=== PATIENT | female | born 2000 | race Caucasian/White ===

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

== ENCOUNTER 2018-01-14 16:01 | Outpatient (CLI) | payer BC, MEDICAID | END 2018-01-14 23:59 | LOC: LAB.R 16:01 | PROVIDERS: ATTEND Registered Nurse | DX: Z01.419 Encounter for gynecological examination (general) (routine) without abnormal findings (principal) | CPT/HCPCS: 87491; 87591 ==

== ENCOUNTER 2019-01-11 11:36 | Emergency (ER) | payer BC, MEDICAID ==
[2019-01-11 11:44] VITALS: BP 100/60
[2019-01-11 12:04] LABS: GLUCOSE, URINE (UA) NEGATIVE (NEGATIVE); KETONES,URINE (UA) 15 mg/dL (NEGATIVE); PH,URINE 6.5 PH (5.0-7.5)
[2019-01-11 12:05] LABS: CLARITY,URINE CLOUDY (CLEAR)
[2019-01-11 12:10] LABS: BILIRUBIN,URINE COLOR INTERFERENCE (NEGATIVE); HCG UR QUAL NEGATIVE
[2019-01-11 12:19] LABS: BACTERIA,URINE Few /HPF (None Seen); MUCUS,URINE Few Strands; SQUAMOUS EPITHELIAL CELL,UR FEW Squamous (<= Few)
--- NOTE | 2019-01-11 12:35 | ED Physician Documentation ---
PD HPI BACK PAIN - Stated complaint Stated Complaint: BACK PX - Chief complaint Chief Complaint: Back Pain - History obtained from History obtained from: Patient - History of Present Illness Timing - onset: How many days ago (3-4) Timing - duration: Days Timing - details: Gradual onset Pain level max: 8 Pain level now: 8 Location: Lower, Right Quality: Pain, Spasm Associated symptoms: No: Fever, Weakness, Numbness, Incontinent of urine, Unable to urinate, Hematuria, Incontinent of stool Improves with: Rest Worsened by: Movement Contributing factors: Other (states woke up with back pain) Recently seen: Not recently seen - Additional information Additional information: Patient with right low back pain that occasionally radiates down the right leg. Worse with movement and better with rest. She states she woke up from sleep like this. Review of Systems Constitutional: denies: Fever, Chills Ears: denies: Ear pain Nose: denies: Rhinorrhea / runny nose, Congestion Cardiac: denies: Chest pain / pressure Respiratory: denies: Cough GI: denies: Nausea, Vomiting, Diarrhea : reports: Dysuria Skin: denies: Rash Musculoskeletal: denies: Neck pain Neurologic: denies: Focal weakness, Numbness, Headache PD PAST MEDICAL HISTORY - Past Medical History Past Medical History: No - Past Surgical History Past Surgical History: No - Present Medications Home Medications: Ambulatory Orders Medication Instructions Recorded Confirmed Cyclobenzaprine [Flexeril] 10 mg PO TID PRN #20 tablet 01/11/19 Meloxicam [Mobic] 15 mg PO DAILY PRN #20 tablet 01/11/19 Sulfamethox/Trimeth 800/160 1 each PO BID #20 tablet 01/11/19 [Bactrim Ds 800/160] - Allergies Allergies/Adverse Reactions: Allergies Allergy/AdvReac Type Severity Reaction Status Date / Time No Known Drug Allergies Allergy Verified 01/11/19 11:44 - Social History Does the pt smoke?: No Smoking Status: Never smoker Does the pt drink ETOH?: No Does the pt have substance abuse?: No PD ED PE NORMAL - Vitals Vital signs reviewed: Yes - General General: Alert and oriented X 3, No acute distress - HEENT HEENT: PERRL - Neck Neck: Supple, no meningeal sign - Cardiac Cardiac: RRR - Respiratory Respiratory: No respiratory distress, Clear bilaterally - Abdomen Abdomen: Soft, Non tender, Non distended - Back Back: Other (No midline tenderness to palpation. Paraspinal spasm, right greater than left.) - Derm Derm: Warm and dry, No rash - Extremities Extremities: No edema, Other (Normal bilateral lower extremity patellar and ankle jerk reflexes. Normal great toe extension bilaterally. no saddle anesthesia) - Neuro Neuro: Alert and oriented X 3, No motor deficit, No sensory deficit - Psych Psych: Normal mood, Normal affect Results - Vitals Vitals: Vital Signs - 24 hr 01/11/19 11:42 Temperature 36.2 C L Heart Rate 119 H Respiratory 16 Rate Blood Pressure 100/60 O2 Saturation 98 Oxygen O2 Source Room air - Labs Labs: Laboratory Tests 01/11/19 11:49 Urine Color LT RED Urine Clarity CLOUDY Urine pH 6.5 Ur Specific [place] 1.020 Urine Protein Urine Glucose (UA) NEGATIVE Urine Ketones 15 H Urine Occult Blood Urine Nitrite Urine Bilirubin COLOR INTERFERENCE Urine Urobilinogen Ur Leukocyte Esterase Urine RBC 6-10 H Urine WBC >25 H Ur Squamous Epith Cells FEW Squamous Urine Bacteria Few Urine Mucus Few Strands Ur Microscopic Review INDICATED Urine Culture Comments INDICATED Urine HCG, Qual NEGATIVE PD MEDICAL DECISION MAKING - ED course Complexity details: re-evaluated patient, considered differential (No cauda equina, no spinal epidural abscess, no fracture, no aortic dissection or evidence of aneursym rupture), d/w patient, d/w family ED course: 18-year-old female presents to the emergency department with low back pain. Appears to be musculoskeletal. Also has a UTI, possible Pyelo? Will treat with Bactrim. She is well-appearing, nontoxic. Afebrile. No evidence of cauda equina. No evidence of fracture. No evidence of epidural abscess. Patient counseled regarding signs and symptoms for which I believe and urgent re- evaluation would be necessary. Patient with good understanding of and agreement to plan and is comfortable going home at this time This document was made in part using voice recognition software. While efforts are made to proofread this document, sound alike and grammatical errors may occur. Departure - Departure Disposition: 01 Home, Self Care Clinical Impression: Back spasm UTI (urinary tract infection) Qualifiers: Urinary tract infection type: acute cystitis Hematuria presence: without hematuria Qualified Code(s): N30.00 - Acute cystitis without hematuria Condition: Good Instructions: ED UTI Cystitis Female, ED Spasm Back No Trauma Follow-Up: Leonor Galicia, MANAGER METAL [Primary Care Provider] - Within 1 week Prescriptions: Cyclobenzaprine [Flexeril] 10 mg PO TID PRN #20 tablet PRN Reason: Spasms Meloxicam [Mobic] 15 mg PO DAILY PRN #20 tablet PRN Reason: pain Sulfamethox/Trimeth 800/160 [Bactrim Ds 800/160] 1 each PO BID #20 tablet Comments: Take all antibiotics until gone. Return if you worsen. Do not drive or operate heavy machinery while taking the Flexeril. This should improve over the next 2 to 3 days.
== END 2019-01-11 12:49 | disposition home or self-care (01) ==
LOC: ED 11:36
DX: M62.830 Muscle spasm of back (principal); N30.00 Acute cystitis without hematuria
CPT/HCPCS: 81001; 81003; 81025; 87077; 87086; 87181; 99283

== ENCOUNTER 2020-04-20 00:53 | Emergency (ER) | payer BC, MEDICAID ==
--- NOTE | 2020-04-20 01:50 | ED Physician Documentation ---
PD HPI FEMALE - Stated complaint Stated Complaint: F - Chief complaint Chief Complaint: Abd Pain - History obtained from History obtained from: Patient - History of Present Illness Timing - onset: How many weeks ago (8) Timing - details: Waxing and waning Pain level max: 0 Associated symptoms: Pelvic pain (intermittent pelvic midline cramping), Vaginal bleeding. No: Fever, Abdominal pain, Back pain OB-AMPOULE FILLER History: Termination(s) Recently seen: Clinic - Additional information Additional information: patient says she was approximately 6 weeks 8 weeks ago when she took prescribed medication meant to induce of her . She says this was through a [facility] and that blood tests were done to both confirm as well as a few weeks after taking the medication; patient says the follow up blood tests confirmed the medication had the desired effect. Patient says no ultrasound was performed. She c/o ongoing bleeding in the 8 weeks since she took the medication, and the bleeding worsened over the past 1-2 weeks becoming associated with clots and intermittent midline pelvic cramping Review of Systems Constitutional: denies: Fever, Chills, Sweats GI: denies: Abdominal Pain, Nausea : reports: Vaginal bleeding. denies: Dysuria, Frequency Musculoskeletal: denies: Back pain PD PAST MEDICAL HISTORY - Past Medical History Past Medical History: No - Past Surgical History Past Surgical History: No - Present Medications Home Medications: Ambulatory Orders Medication Instructions Recorded Confirmed No Known Home Medications 04/20/20 04/20/20 - Allergies Allergies/Adverse Reactions: Allergies Allergy/AdvReac Type Severity Reaction Status Date / Time No Known Drug Allergies Allergy Verified 04/20/20 01:04 - Social History Does the pt smoke?: No Smoking Status: Never smoker Does the pt drink ETOH?: No Does the pt have substance abuse?: No PD ED PE NORMAL - Vitals Vital signs reviewed: Yes - General General: Alert and oriented X 3, No acute distress, Well developed/nourished - Abdomen Abdomen: Soft, Non tender, Non distended - Back Back: No CVA TTP Results - Vitals Vitals: Vital Signs - 24 hr 04/20/20 04/20/20 00:59 04:33 Temperature 36.5 C Heart Rate 86 81 Respiratory 18 16 Rate Blood Pressure 139/95 H 133/71 H O2 Saturation 100 99 Oxygen O2 Source Room air - Labs Labs: Laboratory Tests 04/20/20 04/20/20 04/20/20 02:12 02:15 03:15 WBC 4.3 L RBC 4.13 L Hgb 12.9 Hct 38.4 MCV 93.0 MCH 31.2 H MCHC 33.6 RDW 11.6 L Plt Count 281 MPV 10.3 Neut # (Auto) 2.1 Lymph # (Auto) 1.8 [place] # (Auto) 0.3 Eos # (Auto) 0.1 Baso # (Auto) 0.0 Absolute Nucleated RBC 0.00 Nucleated RBC % 0.0 Sodium 138 Potassium 3.7 Chloride 105 Carbon Dioxide 23 Anion Gap 10.0 BUN 9 Creatinine 0.6 Estimated GFR (MDRD) 125 Glucose 96 Calcium 9.5 Total Bilirubin 1.5 H AST 21 ALT 24 Alkaline Phosphatase 11 L Total Protein 8.0 Albumin 4.3 Globulin 3.7 Albumin/Globulin Ratio 1.2 Lipase 25 HCG, Quant Urine Color DARK YELLOW Urine Clarity CLEAR Urine pH 6.0 Ur Specific [place] >=1.030 H Urine Protein 30 H Urine Glucose (UA) NEGATIVE Urine Ketones NEGATIVE Urine Occult Blood LARGE H Urine Nitrite NEGATIVE Urine Bilirubin NEGATIVE Urine Urobilinogen 0.2 (NORMAL) Ur Leukocyte Esterase NEGATIVE Urine RBC TNTC H Urine WBC 0-3 Ur Squamous Epith Cells RARE Squamous Urine Bacteria Rare Urine Mucus Moderate Strands Ur Microscopic Review INDICATED Urine Culture Comments NOT INDICATED 04/20/20 03:15 WBC RBC Hgb Hct MCV MCH MCHC RDW Plt Count MPV Neut # (Auto) Lymph # (Auto) [place] # (Auto) Eos # (Auto) Baso # (Auto) Absolute Nucleated RBC Nucleated RBC % Sodium Potassium Chloride Carbon Dioxide Anion Gap BUN Creatinine Estimated GFR (MDRD) Glucose Calcium Total Bilirubin AST ALT Alkaline Phosphatase Total Protein Albumin Globulin Albumin/Globulin Ratio Lipase HCG, Quant 41.98 Urine Color Urine Clarity Urine pH Ur Specific [place] Urine Protein Urine Glucose (UA) Urine Ketones Urine Occult Blood Urine Nitrite Urine Bilirubin Urine Urobilinogen Ur Leukocyte Esterase Urine RBC Urine WBC Ur Squamous Epith Cells Urine Bacteria Urine Mucus Ur Microscopic Review Urine Culture Comments - Rads (name of study) pelvic US Radiology: Prelim report reviewed, See rad report PD MEDICAL DECISION MAKING - ED course Complexity details: reviewed results, re-evaluated patient, considered differential, d/w patient ED course: reassuring blood test results (normal h/h). US c/w retained POC. D/W Dr. Ulloa, recommends 800 micrograms misoprostol (can be given to patient to take at home) and f/u with Dr. Ulloa 8:45 AM this coming Wednesday in the office for repeat US. I discussed this with patient and she is comfortable with this plan Departure - Departure Disposition: Home, Self Care Clinical Impression: Retained products of conception Condition: Good Follow-Up: Awilda Ulloa MD [Provider Admit Priv/Credential] - Comments: The ultrasound performed tonight shows retained products of conception; this means that there is still tissue in the uterus from the that has not yet been expelled by the previous medication. Another dose of medication has been given to you tonight; take this when you get home from the emergency department (800 micrograms of misoprostol, to be taken all at once). This will likely cause increased bleeding and pelvic cramping. If you have more than 2 soaked superpads of bleeding per hour, you need to return to the emergency department. Follow up with Dr. Ulloa at 8:45 AM this coming Wednesday for repeat testing (ultrasound) to see if the tissue has been expelled. Discharge Date/Time: 04/20/20 04:35
[2020-04-20 02:18] LABS: BASOPHILS % (AUTO) 0.5 %; EOSINOPHILS # (AUTO) 0.1 10^3/uL (0.0-0.7); EOSINOPHILS % (AUTO) 2.3 %; HGB - HEMOGLOBIN 12.9 g/dL (12.0-16.0); LYMPHOCYTES # (AUTO) 1.8 10^3/uL (1.5-3.5); LYMPHOCYTES % (AUTO) 41.4 %; MEAN CORPUSCULAR HEMOGLOBIN 31.2 pg (27.0-31.0); MEAN CORPUSCULAR HGB CONC 33.6 g/dL (32.0-36.0); MEAN PLATELET VOLUME 10.3 fL (7.9-10.8); MONOCYTES # (AUTO) 0.3 10^3/uL (0.0-1.0); MONOCYTES % (AUTO) 7.9 %; NEUTROPHILS # (AUTO) 2.1 10^3/uL (1.5-6.6); NEUTROPHILS % (AUTO) 47.9 %; PLT - PLATELET COUNT 281 10^3/uL (130-450); RED BLOOD COUNT 4.13 10^6/uL (4.20-5.40); RED CELL DISTRIBUTION WIDTH 11.6 % (12.0-15.0); WHITE BLOOD COUNT 4.3 x10^3/uL (4.8-10.8)
[2020-04-20 02:23] LABS: GLUCOSE, URINE (UA) NEGATIVE (NEGATIVE); KETONES,URINE (UA) NEGATIVE (NEGATIVE); LEUKOCYTE ESTERASE, URINE NEGATIVE (NEGATIVE); NITRITE,URINE NEGATIVE (NEGATIVE); OCCULT BLOOD,URINE LARGE (NEGATIVE); PROTEIN,URINE 30 mg/dL (NEGATIVE); UROBILINOGEN,URINE 0.2 (NORMAL) E.U./dL (NORMAL)
[2020-04-20 02:26] LABS: BILIRUBIN,URINE NEGATIVE (NEGATIVE); CLARITY,URINE CLEAR (CLEAR); ICTOTEST,URINE NEGATIVE
[2020-04-20 02:29] LABS: BACTERIA,URINE Rare /HPF (None Seen); MUCUS,URINE Moderate Strands; RBC,URINE TNTC /HPF (0-5); SQUAMOUS EPITHELIAL CELL,UR RARE Squamous (<= Few)
[2020-04-20 03:34] LABS: ALBUMIN 4.3 g/dL (3.2-5.5); ALBUMIN/GLOBULIN RATIO 1.2 (1.0-2.2); BILIRUBIN,TOTAL 1.5 mg/dL (0.2-1.0); CALCIUM 9.5 mg/dL (8.5-10.3); CREATININE 0.6 mg/dL (0.4-1.0)
[2020-04-20] MEDS ORDERED: miSOPROStoL 200 MCG TABLET PO STA (04:11)
[2020-04-20 04:34] VITALS: BP 133/71
--- NOTE | 2020-04-20 12:56 | Ultrasound Report ---
PROCEDURE: Transvaginal INDICATIONS: assess possible retained POC TECHNIQUE: Real-time transabdominal scanning was performed of the pelvic organs, with image documentation. COMPARISON: None. FINDINGS: Uterus: Uterus is normal in size at A 0.4 x 4.8 x 3.8 cm. Endometrium is heterogeneous -14.5 mm. Add itionally, in the fundal aspect of the endometrium there is a prevascular heterogeneous complex measu ring approximately 1.5 x 1.4 x 1.2 cm highly suggestive of retained products of conception. Ovaries: Right ovary measures 2.4 x 1.6 x 1.5 cm. Left ovary measures 2.7 x 1.6 x 1.5 cm. Normal Dop pler appearance of the ovaries. Other: No free pelvic fluid. Limited scanning through the kidneys shows no hydronephrosis. IMPRESSION: Findings consistent with retained products of conception at the fundal aspect and endome trium. No significant discrepancy between the preliminary and final reports. Reviewed by: Renaldo Shepherd on 04/20/2020 11:55 AM AMPARO Approved by: Renaldo Shepherd on 04/20/2020 11:55 AM AMPARO Station ID: [id number]
--- NOTE | 2020-04-20 12:58 | Ultrasound Report ---
PROCEDURE: Pelvic Complete INDICATIONS: assess for possible retained POC TECHNIQUE: Real-time transabdominal scanning was performed of the pelvic organs, with image documentation. COMPARISON: None. FINDINGS: Uterus: Uterus is normal in size at A 0.4 x 4.8 x 3.8 cm. Endometrium is heterogeneous -14.5 mm. Add itionally, in the fundal aspect of the endometrium there is a prevascular heterogeneous complex measu ring approximately 1.5 x 1.4 x 1.2 cm highly suggestive of retained products of conception. Ovaries: Right ovary measures 2.4 x 1.6 x 1.5 cm. Left ovary measures 2.7 x 1.6 x 1.5 cm. Normal Dop pler appearance of the ovaries. Other: No free pelvic fluid. Limited scanning through the kidneys shows no hydronephrosis. IMPRESSION: Findings consistent with retained products of conception at the fundal aspect and endome trium. No significant discrepancy between the preliminary and final reports. Reviewed by: Renaldo Shepherd on 04/20/2020 11:56 AM AMPARO Approved by: Renaldo Shepherd on 04/20/2020 11:56 AM AMPARO Station ID: [id number]
== END 2020-04-20 04:35 | disposition home or self-care (01) ==
LOC: ED 00:53
DX: O03.1 Delayed or excessive hemorrhage following incomplete spontaneous abortion (principal)
CPT/HCPCS: 36415; 76830; 76856; 80053; 81001; 83690; 84702; 85025; 99283; 99284; A9270; 81003; 87086

== ENCOUNTER 2023-08-04 08:00 | Outpatient (CLI) | payer BC | END 2023-08-04 23:59 | disposition home or self-care (01) | LOC: LAB.WC 08:00 | PROVIDERS: ATTEND Obstetrics & Gynecology | DX: Z36.85 Encounter for antenatal screening for Streptococcus B (principal) | CPT/HCPCS: 87797 ==

== ENCOUNTER 2023-08-04 11:36 | Outpatient (CLI) | payer BC ==
[2023-08-04 11:51] VITALS: BP 113/68
--- NOTE | 2023-08-04 21:09 | PROCEDURE REPORT ---
- HPI Diagnosis/Indication for NST: Other (velamentous cord insertion) Current EDU 09/01/23 Gestation 36 Weeks and 0 Days 8 Para 2 Vital Signs Temperature 97.9 F 08/04/23 11:44 Heart Rate 70 08/04/23 11:44 Respiratory Rate 16 08/04/23 11:44 Blood Pressure 113/68 08/04/23 11:44 Temperature 97.9 F 08/04/23 11:44 Heart Rate 70 08/04/23 11:44 Respiratory Rate 16 08/04/23 11:44 Blood Pressure 113/68 08/04/23 11:44 O2 Saturation If not protocol: Oxygen Flow, liters/minute - NST Procedure NST Procedure Start Date 08/04/23 Start Time 11:41 Stop Time 12:43 Vibroacoustic Stimulation Used No Patient States Movement Yes NST reviewed in real time. no decels. + acels. moderate variability. - Results and Plan Findings/Impression: reactive nst Plan: as scheduled.
== END 2023-08-04 12:56 | disposition home or self-care (01) ==
LOC: WFO 11:36 → FBP 11:37 → WFO 12:56
PROVIDERS: ATTEND Obstetrics & Gynecology
DX: O43.123 Velamentous insertion of umbilical cord, third trimester (principal); Z87.59 Personal history of other complications of pregnancy, childbirth and the puerperium; Z3A.36 36 weeks gestation of pregnancy; Z36.85 Encounter for antenatal screening for Streptococcus B
CPT/HCPCS: 59025; 87797

== ENCOUNTER 2023-08-12 06:35 | Inpatient (IN) | payer BC, MEDICAID ==
[2023-08-12] MEDS ORDERED: OXYTOCIN/SODIUM CHLORIDE 500 ML IV PRN ×2 (07:32→11:02)
[2023-08-12] MEDS ORDERED: NIFEdipine 10 MG CAPSULE PO PRN ×2 (07:32→11:02)
[2023-08-12] MEDS ORDERED: lidocaine 1% 20 ML MDV ID PRN ×2 (07:32→11:02)
[2023-08-12] MEDS ORDERED: miSOPROStoL 200 MCG TABLET BC PRN ×2 (07:32→11:02)
[2023-08-12] MEDS ORDERED: TERBUTALINE 1 MG/ML VIAL SUBQ PRN ×2 (07:32→11:02)
[2023-08-12] MEDS ORDERED: OXYTOCIN 10 UNIT/ML VIAL IM PRN ×2 (07:32→11:02)
[2023-08-12] MEDS ORDERED: hydrALAZINE INJ 20 MG/ML VIAL IVP PRN ×4 (07:32→11:02)
[2023-08-12] MEDS ORDERED: miSOPROStoL 200 MCG TABLET PR PRN ×2 (07:32→11:02)
[2023-08-12] MEDS ORDERED: TRANEXAMIC ACID IN NACL 1,000 MG/100 ML BAG IV PRN ×2 (07:32→11:02)
[2023-08-12] MEDS ORDERED: CARBOPROST TROMETHAMINE 250 MCG/ML AMP IM PRN ×2 (07:32→11:02)
[2023-08-12] MEDS ORDERED: LACTATED RINGERS 1,000 ML IV PRN ×3 (07:32→16:50)
[2023-08-12] MEDS ORDERED: AMPICILLIN 2 GM in SODIUM CHLORIDE 0.9% MINIBAG 100 ML IV ONE (07:32)
[2023-08-12] MEDS ORDERED: METHYLERGONOVINE 0.2 MG/ML VIAL IM PRN ×2 (07:32→11:02)
[2023-08-12] MEDS ORDERED: fentaNYL 100 MCG/2 ML VIAL IVP PRN ×2 (07:32→11:02)
[2023-08-12] MEDS ORDERED: LABETALOL 20 MG/4 ML SYRINGE IVP PRN ×6 (07:32→11:02)
[2023-08-12] MEDS ORDERED: SODIUM CHLORIDE FLUSH 0.9% 10 ML SYRINGE IVP PRN ×2 (07:32→11:02)
[2023-08-12] MEDS ORDERED: SODIUM CHLORIDE FLUSH 0.9% 10 ML SYRINGE IVP SCH (08:00)
[2023-08-12] MEDS: LACTATED RINGERS 1,000 ML IV SCH (08:16)
[2023-08-12 08:31] LABS: BASOPHILS % (AUTO) 0.3 %; EOSINOPHILS # (AUTO) 0.1 10^3/uL (0.0-0.7); EOSINOPHILS % (AUTO) 0.8 %; HCT - HEMATOCRIT 36.8 % (37.0-47.0); HGB - HEMOGLOBIN 12.1 g/dL (12.0-16.0); LYMPHOCYTES # (AUTO) 2.1 10^3/uL (1.5-3.5); LYMPHOCYTES % (AUTO) 32.1 %; MEAN CORPUSCULAR HEMOGLOBIN 29.1 pg (27.0-31.0); MEAN CORPUSCULAR HGB CONC 32.9 g/dL (32.0-36.0); MEAN CORPUSCULAR VOLUME 88.5 fL (81.0-99.0); MEAN PLATELET VOLUME 11.8 fL (7.9-10.8); MONOCYTES # (AUTO) 0.5 10^3/uL (0.0-1.0); MONOCYTES % (AUTO) 8.1 %; NEUTROPHILS # (AUTO) 3.8 10^3/uL (1.5-6.6); NEUTROPHILS % (AUTO) 58.2 %; PLT - PLATELET COUNT 254 10^3/uL (130-450); RED BLOOD COUNT 4.16 10^6/uL (4.20-5.40); RED CELL DISTRIBUTION WIDTH 13.5 % (12.0-15.0); WHITE BLOOD COUNT 6.6 x10^3/uL (4.8-10.8)
[2023-08-12] MEDS ORDERED: ONDANSETRON 4 MG/2 ML VIAL IVP PRN ×2 (11:02→16:50)
[2023-08-12] MEDS: miSOPROStoL 100 MCG TABLET VG SCH (11:29)
[2023-08-12] MEDS: AMPICILLIN 1 GM in SODIUM CHLORIDE 0.9% MINIBAG 100 ML IV SCH (12:17)
[2023-08-12] MEDS ORDERED: ONDANSETRON ODT 4 MG TABLET TL PRN (16:50)
[2023-08-12] MEDS ORDERED: WITCH HAZEL/GLYCERIN 1 PAD TOP PRN (16:50)
[2023-08-12] MEDS: ACETAMINOPHEN 325 MG TABLET PO PRN ×2 (17:20→23:26)
[2023-08-12] MEDS: IBUPROFEN 600 MG TABLET PO PRN ×2 (17:21→23:27)
--- NOTE | 2023-08-12 19:27 | DELIVERY NOTE ---
Delivery Note - Labor Labor: positive: Spontaneous - Delivery Method Delivery Method: positive: Vacuum assist - Cervical Ripening Method Cervical Ripening Method: positive: Misoprostil - Presentation Presentation: positive: Vertex, ROT - right occiput transverse - Nuchal Cord Nuchal Cord: positive: Present - Anesthetic Anesthetic Type: - Amniotic Fluid Description Amniotic Fluid Description: positive: Clear - Vacuum Use Indication for Vacuum Use: positive: Suspicion of immediate or potential compromise Type of Vacuum Cup: positive: Cup: Soft Vacuum Extraction: positive: Successful Number of pop-offs: 1 - Episiotomy Type Episiotomy Type: positive: None - Laceration Laceration: positive: None - Delivery Outcome Delivery Outcome: positive: Livebirth - [place]: positive: Placed in direct skin contact with mother, Bulb syringe, Stimulated, Warmed sex: positive: Male - Cord Cord: positive: 3 vessels - Placenta Placenta: positive: Intact, Spontaneous - Estimated Blood Loss Estimated Blood Loss (in cc): 100 - Post Delivery Events Post Delivery Events: positive: No post delivery events - Delivery Comments (Free Text/Narrative) Delivery Comments (Free Text/Narrative): On 12 Aug 2023 at 1624 patient delivered a viable male infant over intact perineum with vacuum assistance in the OR. Patient had been 8cms, rapidly progressing, anterior lip of cervix reduced with pushing, and then pushing in labor room. could not ascertain hearts from maternal, was between 80s and 120s. Verbal consent for vacuum though fetus still at -3 station. Set up for Vacuum, trial of pushing again with vacuum in vagina - baby too high to safely vacuum in room. Took vacuum out. Placed FSE at 1618. Hearts in the 70s. Moved to OR for Vacuum in OR. Arrived in OR, while team was setting up got consent to attempt VAVD in the OR. Applied vacuum with onset of contraction, coordinated pushing caused successful delivery of head at 1624. Baby ROT, L shoulder anterior, tight nuchal cord, baby delivered through. Crying spontaneously, placed on maternal abdomen. Apgars 8/9. Cord clamped and cut x2. Perineum inspected, no tears or lacerations. Placenta delivered spontaneously at 1628. Inspected, battledor cord insertion with 3VC. Fundus firm with IV pit. EBL 100. Did not count instruments as this was done in the OR while setting up for C/S, though no instruments laps or sponges were placed in or remained in vagina. Both mom and baby recovering well. Stage I: 22m Stage II: 34m Stage III: 4m
[2023-08-12] MEDS: DOCUSATE SODIUM 100 MG CAPSULE PO SCH (21:22)
--- NOTE | 2023-08-13 01:01 | HISTORY & PHYSICAL EXAMINATION ---
Admit History - Visit Reason Visit Reason: Membranes rupture - : 8 Parity: 1 Premature: 1 Ectopic: 0 : 6 Care: positive: [facility], Other Risk/History: positive: High risk Smoking Status: Current some day smoker - Other Maternal History Other Maternal History: 23yo ANC c/b: late transfer to care h/o IUFD @21.6wks, -Positive for syphilis. Hypercoagulable workup was negative. -Most recent RPR: 1: 4 after treatment which was adequate response. -Has been doing surveillance. Order placed to continue. -Plan for likely delivery at 39 weeks, although patient hesitant to deliver early. -Plan for repeat RPR at labor and delivery Velementous Cord insertion -Repeat ultrasound ordered. Pre- Weight:125.2 BMI: 22.9 Blood type: A+ Rh: pos Antibody: neg CBC: PLT 208 HCT 35.0 HGB 12.1 RUB: imm VZV: imm HBsAg: neg HepC: neg RPR/AB-EIA: pos: ratio - 1:4 HIV: neg PAP: 2021 normal per pt GC/CT: neg HSV: denies self/partner Genetic testin03/11/23 neg Covid: declined Flu: declined RSV: 08/04 FAS: 04/16/23 Placenta: anterior Cord: poss velamentous insertion JANIE: WNL EFW: 398g 50gm OGCT: 75 TDAP: rcvd at 32 weeks Breast Pump: has one GBS collected 08/04 POSITIVE Delivery plan: Possible 39-week induction, the patient is hesitant. Contraception: Previously pills, NuvaRing, Depo-Provera. Planning on abstinence as her partner will be deployed. PMH: Anemia, anxiety, depression PSH: denies POB: h/o FTNSVD - 5yo son and h/o 21w IUFD - 2y ago - son first child without complications. and this see above for details PGYN: no h/o abnormal pap remote h/o syphillis - s/p tx. no h/o problems with ovaries or uterus pt with regular monthly periods, when not Meds: PNV -- had been taking seroquel and sertraline (quietapine and zoloft) and then quit / stopped / tapered down when she moved here from [place]. Per her psychiatrist it was OK - pt aware that she can (should) restart these meds post . All: NKDA Soc: neg x2 - smokes tobacco everyday, lives with [place] mom [place]. Fam: unremarkable VSS NAD Conjunctiva pink, pale sclera +S1, S2, CTAB, no increased work of breathing Abd soft, NT, ND, visibly gravid at term Walker: cephalic, 6#8 NST: 140mod edmund + A cells no D cells, reactive Hilger: acontractile Cx: cl per RN, will start IOL with miso. Ext: neg CCE - HPI Current EDU 09/01/23 Gestation 37 Weeks and 1 Days 8 Vital Signs Temperature 97.7 F 08/12/23 07:00 Heart Rate 72 08/12/23 07:00 Blood Pressure 119/81 H 08/12/23 07:00 Temperature 98.2 F 08/12/23 23:37 Heart Rate 74 08/12/23 23:37 Respiratory Rate 18 08/12/23 23:37 Blood Pressure 123/72 08/12/23 23:37 O2 Saturation 99 08/12/23 19:30 If not protocol: Oxygen Flow, liters/minute - NST Procedure NST Procedure Start Time 11:41 Stop Time 12:43 Meds/Allgy - Home Medications Home Medications: Ambulatory Orders Medication Instructions Recorded Confirmed No Known Home Medications 04/20/20 04/20/20 - Allergies Allergies/Adverse Reactions: Allergies Allergy/AdvReac Type Severity Reaction Status Date / Time No Known Drug Allergies Allergy Verified 04/20/20 01:04 Physical - Abdominal Exam Vital Signs: Temp Pulse Resp BP Pulse Ox O2 Flow Rate 98.2 F 74 18 123/72 99 08/12/23 23:37 08/12/23 23:37 08/12/23 23:37 08/12/23 23:37 08/12/23 19:30 Plan for Labor - Plan For Labor I expect patient to be DC'd or transferred within 96 hours.: Yes Plan for Labor: 23yo @ 37w2d presents with PROM - water broke this morning - no F /C/N/V/CP/SOB no VB, no ctx, good movement. PROM - admit to L&D routine admission process - routine labs h/o syphillis - order titer RPR FWB - cat 1 - cEFM IOL - begin with miso anticipate . Good family support.
[2023-08-13] MEDS: ACETAMINOPHEN 325 MG TABLET PO PRN (05:24)
[2023-08-13] MEDS: IBUPROFEN 600 MG TABLET PO PRN (05:24)
[2023-08-13 05:53] VITALS: O2SAT 100
[2023-08-13 08:25] VITALS: BP 122/63
[2023-08-13] MEDS: SODIUM CHLORIDE FLUSH 0.9% 10 ML SYRINGE IVP SCH (10:26)
[2023-08-13] MEDS: AMPICILLIN 1 GM in SODIUM CHLORIDE 0.9% MINIBAG 100 ML IV SCH (10:27)
[2023-08-13] MEDS: LACTATED RINGERS 1,000 ML IV SCH (10:27)
[2023-08-13] MEDS: miSOPROStoL 100 MCG TABLET VG SCH (10:27)
[2023-08-13] MEDS: DOCUSATE SODIUM 100 MG CAPSULE PO SCH (10:43)
--- NOTE | 2023-08-13 18:03 | Labor Flowsheet ---
Labor Flowsheet Datetime Report Generated by CPN: 08/13/2023 18:03 Datetime: 08/13/2023 08:07 VITAL SIGNS NBP Sys/Christina/Mean (mmHg): 122 : 63 : 75 Pulse: 59 Datetime: 08/12/2023 18:45 Respirations: 16 Temperature (C): 36.8 Temperature Route: Oral Datetime: 08/12/2023 17:08 SpO2 (%): 99 Datetime: 08/12/2023 16:45 PAIN Pain Scale: 5 Datetime: 08/12/2023 16:30 Stage of : Recovery Datetime: 08/12/2023 16:28 Stage 2 Comments: Placenta delivered intact Datetime: 08/12/2023 16:26 MEDICATIONS Pitocin (milliunits): Started @ Medication Comments: Post pitocin initiated Datetime: 08/12/2023 16:24 Vacuum: On Datetime: 08/12/2023 16:15 UTERINE ACTIVITY Monitor Mode: Palpation Frequency (min): 1.5 Quality: Strong Duration (sec): 50 Pattern: Tachysystole: > 5 Contractions in 10 Minutes Resting Tone (Palpate): Relaxed Monitor Interventions for FHR: Ultrasound Adjusted Actions for Decelerations: Side to Side Category: Category II Comments: indeterminate baseline. FHR 90's-140's, effective pushing STAGE 2 Pushing: Urge to Push Pushing Position: Pushing with Contractions; Pushing Lithotomy Pushing Progress: Descent with Pushing LaborFlag: Labor Datetime: 08/12/2023 16:00 FHR Baseline Rate : 120 Variability: Moderate 6-25 bpm Decelerations: Prolonged Datetime: 08/12/2023 15:59 ASSESSMENT A Monitor Mode: External US Datetime: 08/12/2023 15:50 Vaginal Exam Comments: anterior lip reduced by MD Datetime: 08/12/2023 15:45 Accelerations: 15X15 Pain Coping: Crying; Writhing Pain Assessment Comments: nitrous set-up VAGINAL EXAM Dilatation (cm): 8.0 Exam by: Cadny COMMUNICATION Communication: Provider at Bedside Notification Reason: Labor Status Datetime: 08/12/2023 15:38 Effacement (%): 80 Station: -1 Cervix, Position: Posterior Datetime: 08/12/2023 15:30 Contraction Comments: Increasing in intensity. Holding cytotec until SVE Datetime: 08/12/2023 14:33 Patient Position/Activity: Birthing Ball Datetime: 08/12/2023 13:00 FHR Baseline Changes: No Baseline Change Oxygen Method: Room Air Datetime: 08/12/2023 12:18 Antibiotics: Ampicillin IV 1 Gm Datetime: 08/12/2023 11:29 Cervical Ripening Agents: Cytotec @ 25 Datetime: 08/12/2023 10:33 Provider Reviewed Strip: Yes Strip Reviewed by: Dr. Gupta Datetime: 08/12/2023 07:31 Membrane Status: Ruptured Membranes Ruptured Date/Time: 08/12/2023 05:30 Membranes Rupture Method: Spontaneous Amniotic Fluid Color: Clear Amniotic Fluid Amount: Large Amniotic Fluid Odor: None Vaginal Bleeding: None Nitrazine: Positive Cervix, Consistency: Soft Membrane Comments: SROM at home this morning. Datetime: 08/12/2023 07:30 PATIENT CARE IV/Blood Work: IV Started; Labs Drawn with IV Start
--- NOTE | 2023-08-13 21:10 | DISCHARGE SUMMARY ---
Discharge Summary Admit Date: 08/12/23 Discharge Date: 08/13/23 Discharging Provider: Cyndi Cam MD Code Status: Attempt Resuscitation Condition at Discharge: Good - DIAGNOSES Admission Diagnoses: premature rupture membranes at 37 weeks gestational age. Discharge Diagnoses with Status of Each Condition: delivered vacuum assisted vaginal delivery - HPI History of Present Illness: 23yo @ 37w2d presents with PROM on am of admit. - HOSPITAL COURSE Hospital Course: admitted with PROM at 37 weeks. miso to induce labor. progress well in labor and then had bradycardia. Dr. Gupta felt baby to high of a station to place vacuum in room so urgently brought to OR. Vacuum placed while staff readied for c section in case it did not work. Vacuum delivery worked and baby did well. post course unremarkable. Discharged home on ppd #1. patient did have + syphilis in past, treated. RPR from admit pending at time of delivery. recommend f/u in 1 week. - ALLERGIES Allergies/Adverse Reactions: Allergies Allergy/AdvReac Type Severity Reaction Status Date / Time No Known Drug Allergies Allergy Verified 04/20/20 01:04 - MEDICATIONS Home Medications: Ambulatory Orders Medication Instructions Recorded Confirmed No Known Home Medications 04/20/20 04/20/20 - LABS Result Diagrams: 08/12/23 07:40
--- NOTE | 2023-08-13 21:15 | Discharge Plan ---
Discharge Plan Problem Reviewed?: Yes Disposition: Home, Self Care Diet: Regular Activity Restrictions: pelvic rest 6 weeks. Shower Restrictions: No Driving Restrictions: No Weight Bearing: Full Weight Assessment: s/p term vaginal delivery No Smoking: If you smoke, Please STOP! Call for help.
[2023-08-18 11:10] LABS: RPR Reactive (Non Reactive); TREPONEMA PALLIDUM ANTIBODIES Reactive (Non Reactive)
== END 2023-08-13 17:58 | disposition home or self-care (01) | DRG 807 ==
LOC: WFO 06:35 → FBP 06:35 → WFO 11:02 → FBP 11:03
PROVIDERS: ADMIT Obstetrics & Gynecology; ATTEND Obstetrics & Gynecology
PROC: 10D07Z6 Extraction of Products of Conception, Vacuum, Via Natural or Artificial Opening (ICD-10-PCS; principal; 2023-08-12)
PROC: 3E0P7VZ Introduction of Hormone into Female Reproductive, Via Natural or Artificial Opening (ICD-10-PCS; 2023-08-12)
DX: O42.02 Full-term premature rupture of membranes, onset of labor within 24 hours of rupture (principal); Z37.0 Single live birth; O99.334 Smoking (tobacco) complicating childbirth; F17.200 Nicotine dependence, unspecified, uncomplicated; O43.129 Velamentous insertion of umbilical cord, unspecified trimester; Z3A.37 37 weeks gestation of pregnancy; Z86.19 Personal history of other infectious and parasitic diseases; O99.344 Other mental disorders complicating childbirth; F32.A Depression, unspecified; O69.81X0 Labor and delivery complicated by cord around neck, without compression, not applicable or unspecified; O76 Abnormality in fetal heart rate and rhythm complicating labor and delivery
CPT/HCPCS: 36415; 59409; 85025; 86592; 86850; 86900; 86901; 99215; A9270; J7120; 86593; 86780